=== PATIENT | female | born 1955 | race Caucasian/White ===

== ENCOUNTER → 2016-05-24 | Outpatient (REF) | payer BC ==
[2016-05-24 17:39] LABS: AMYLASE 56 U/L (25-115)
== END ==
LOC: M LAB REF 16:51
PROVIDERS: ATTEND Nurse Practitioner Family
DX: R10.11 Right upper quadrant pain (principal)

== ENCOUNTER → 2018-03-24 | Outpatient (REF) | payer BC ==
[2018-03-28 00:06] LABS: Lyme Disease IgG/IgM Antibodie <0.91 ISR (0.00-0.90); Lyme Disease IgM Ab Quantitati <0.80 index (0.00-0.79)
== END ==
LOC: M LAB REF 16:14
PROVIDERS: ATTEND Nurse Practitioner Family
DX: Z11.8 Encounter for screening for other infectious and parasitic diseases (principal); W57.XXXA Bitten or stung by nonvenomous insect and other nonvenomous arthropods, initial encounter; Y92.9 Unspecified place or not applicable; Y93.9 Activity, unspecified; Y99.9 Unspecified external cause status

== ENCOUNTER → 2020-08-18 | Outpatient (REF) | payer BC, MEDICARE | LOC: M LAB REF 12:17 | PROVIDERS: ATTEND Internal Medicine | DX: M79.10 Myalgia, unspecified site (principal) ==

== ENCOUNTER → 2020-11-21 | Outpatient (CLI) | payer MEDICARE ==
[~2020-11-21] MED LIST: E-Z-GAS II EFFERVESCENT PACKET (SODIUM BICARB./CITRIC ACID/SIMETHICONE) As Ordered ONE; E-Z-HD 98% w/w 340GM SUSP BTL As Ordered ONE; E-Z-PAQUE 96% w/w SUSP 176GM BTL As Ordered ONE
== END ==
LOC: M RAD 08:42
PROVIDERS: ATTEND Internal Medicine
DX: R13.10 Dysphagia, unspecified (principal)

== ENCOUNTER → 2021-02-13 | Outpatient (CLI) | payer MEDICARE ==
[~2021-02-13] MED LIST changes: +BIOT1CAP2 PO; +BUPR-69 PO; -E-Z-GAS II EFFERVESCENT PACKET (SODIUM BICARB./CITRIC ACID/SIMETHICONE) As Ordered ONE; -E-Z-HD 98% w/w 340GM SUSP BTL As Ordered ONE; -E-Z-PAQUE 96% w/w SUSP 176GM BTL As Ordered ONE; +FOLI800C PO; +TRAZ-189 PO; +VITA50TA47 PO
== END ==
LOC: M LABSMTC 11:32
PROVIDERS: ATTEND Anesthesiology
DX: Z01.812 Encounter for preprocedural laboratory examination (principal); Z20.822 Contact with and (suspected) exposure to COVID-19

== ENCOUNTER 2021-02-18 11:08 | Day surgery (SDC) | payer MEDICARE ==
[~2021-02-18] VITALS: Ht 152.4 cm; Wt 64.9 kg
[~2021-02-18 11:08] MED LIST changes: +NS 1,000 ML IV ONE
--- OUTSIDE RECORDS SUMMARY | 2021-02-18 11:17 | CCD ---
Continuity of Care Document (CCD) Created on: 12/12/2020 FigueroaWendy lam External Reference #: [id number] : [id number] Sex: Female Author Author Lab Schedule, Wendy Karimi Organization Unknown Address [address] [place] [phone] Phone Unavailable Care Team Providers Care Tipping Machine Operator Automatic Name Role Phone Marium Serrato MD AUTM [phone] Tee Shelton MD - Neurology AUTM Problems Active Problems Provider Date Anxiety state Marium Serrato M.D. Onset: 6 Attention deficit hyperactivity disorder, predominantl y inattentive type Marium Serrato M.D. Onset: 04/29/2015 Migraine Marium Serrato M.D. Onset: 6 Atrophic vaginitis Marium Serrato M.D. Onset: 6 Pure hypercholesterolemia Marium Serrato M.D. Onset: Osteochondropathy Elayne Killian FNP Onset: 04/29/2015 Social History Type Date Description Comments Sex Unknown ETOH Use Consumes liquor 2 times per week 3-6 DRINKS A WEEK ETOH Use Drinks 3 Alcoholic Beverages Per Week 06/02/16 Tobacco Use Start: Unknown End: Unknown Patient is a former smoker X 15 YRS 1 PACK A DAY Allergies, Adverse Reactions, Alerts Description No Known Drug Allergies Medications Active Medications SIG Qnty Indications Ordering Provide r Date Trazodone HCL 100mg Tablets take one-half tablet by mouth at bedtime prn 45tabs Marium Serrato M.D. 10/22/2020 B2 100mg Tablets qd Marium Serrato M.D. 08/18/2020 Venlafaxine HCL ER 37.5mg Caps ER 24HR Hold 1 by mouth every morning for 7days;then 2 by mouth every day 60caps Marium Serrato M.D. 08/18/2020 Acetaminophen Extra Strength 500mg Tablets 2 by mouth q 6hrs prn po Marium hicks M.D. 06/16/2020 Folic Acid 1mg Tablets 1 by mouth every day 90tabs Volodymyr Ayoub MD 06/16/2020 Vitamin B12 1000mcg Tablets ER 1 by mouth every day Marium Serrato M.D. 06/17/19 21 Multi Vitamin Tablets 1 by mouth every day Marium Serrato M.D. 06/17/19 21 Bupropion HCL 100mg Tablets take 1 tablet by mouth every morning 90tabs Marium Serrato M.D. 0 11/19/2019 Advil 200mg Capsules 3 q 4hrs prn po Elayne Killian,CLAUDY 10/24/2018 History Medications Trazodone HCL 50mg Tablets take 1-2 tablet by mouth at bedtime 60tabs Marium Serrato M.D. 08/02 - 10/22/2020 Thiamine HCL 100mg Tablets 1 by mouth every day 30tabs Marium Serrato M.D. 06/17/19 - 08/18/2020 Medications Administered in Office Medication SIG Qnty Indications Ordering Provider Date Covid-19 vaccine, Unspecified Inj ection Unknown 06/18/2020 Immunizations CPT Code Status Date Vaccine Lot # [id number] Given 04/19/2013 Fluvirin Virus Vaccine [id number] 01 [id number] Given 01/19/2012 Adacel- Tetanus Diphtheria P ertussis (Age64 & Under) [id number] Refused 01/25/2017 Influenza Vaccin e Quadrivalent Preser/Antibiotic Free Im Use Vital Signs Date Vital Result Comment 11/06/2020 2:26pm BP Systolic 118 mmHg RT Arm BP Diastolic 76 mmHg RT Arm Heart Rate 76 /min Height 59.50 inches 4'11.50" Weight 151.00 lb BMI (Body Mass Index) 30.0 kg/m2 08/18/2020 8:34am BP Systolic 112 mmHg RT Arm BP Diastolic 74 mmHg RT Arm Heart Rate 64 /min Height 59.50 inches 4'11.50" Weight 159.00 lb BMI (Body Mass Index) 31.6 kg/m2 Results Test Acquired Date Facility Test Result H/L Range Note Laboratory test finding 08/18/2020 [facility] [address] [place] [address] [phone] C Reactive Protein Quantitativ < 0.30 mg/dL Normal 0.00-0.30 Complete Blood Count 08/18/2020 [place] [facility] Health Navigator: [place] [address] [phone] WBC 3.9 x10*3/UL Low 4.1 - 10.9 RBC 4.70 x10*6/UL 4.20 - 6.30 Hemoglobin 13.9 g/dL 12.0 - 18.0 Hematocrit 40.7 % 37.0 - 51.0 MCV 86.7 fL 80.0 - 97.0 MCH 29.7 pg 26.0 - 32.0 MCHC 34.2 g/dL 31.0 - 38.0 RDW 12.1 % 11.6 - 13.7 PLT 191 x10*3/UL 140 - 440 MPV 8.7 FL 7.8 - 11.0 Lymph % 35.6 % 10.0 - 58.5 Mid % 8.3 % 1.7 - 9.3 Neut % 56.1 % 37.0 - 92.0 Lymph # 1.3 x10*3/UL 0.6 - 4.1 Mid # 0.4 x10*3/UL 0.1 - 0.6 Neut # 2.2 x10*3/UL 2.0 - 7.8 Laboratory test finding 08/18/2020 [place] [facility] alex, pc Health Navigator: [place] [address] [phone] Sed Rate 7 mm/hr 0 - 15 Magnesium 2.2 mg/dL 1.8 - 2.4 Comprehensive Chem Profile 08/18/2020 [place] raul Landry Health Navigator: [place] [address] [phone] Glucose 89 mg/dL 74 - 99 1 BUN 14 mg/dL 7 - 18 Creatinine 0.8 mg/dL 0.6 - 1.3 Sodium 140 mEq/L 136 - 145 Potassium 4.6 mEq/L 3.5 - 5.1 Chloride 105 mEq/L 98 - 107 Carbon Dioxide 28 mEq/L 21 - 32 Calcium 9.2 mg/dL 8.5 - 10.1 Alk. Phosphatase 87 mg/dL 46 - 116 Total Bilirubin 0.4 mg/dL 0.2 - 1.0 Ast (Sgot) 19 U/L 15 - 37 Alt (SGPT) 29 U/L 12 - 78 Albumin 4.3 g/dL 3.4 - 5.0 Total Protein 7.1 g/dL 6.4 - 8.2 A/G Ratio 1.54 CALC 1.00 - 1.90 GFR >= 60 mL/min >60 GFR >= 60 mL/min >60 2 Laboratory test finding 08/18/2020 [place] [facility] raul johnson Health Navigator: [place] [address] [phone] Thyroid Stimulating Hormone 2.05 uIU/mL 0.3 6 - 3.74 1 100-125 mg/dL PRE-DIABET ES/FASTING >126 mg/dL DIABETES/FASTING 2 CHRONIC KIDNEY DISEASE STAGI NG PER NKF STAGE I & II GFR >= 60 NORMAL TO MILDLY DECREASED STAGE III GFR 30-59 MODERATELY DECREASED STAGE IV GFR 15-29 SEVERELY DECREASED STAGE V GFR <15 VERY LITTLE GFR LEFT ESRD GFR <15 ON GAMING CAGE CASHIER Procedures Date Code Description Status 11/06/2020 74670 Office/Outpatient Established Lo w MDM 20-29 Min Completed 08/18/2020 58018 Office/Outpatient Established Mo d MDM 30-39 Min Completed 08/18/2020 51211 Brief Emotional/Beha v Assessment W/ Scoring Doc Per Standard Inst Completed 06/20/2020 97011 Melgar Cre SRV W/I 7 Days Of DC, C omm W/I 2 Dys Med Rec Completed 03/21/2017 [id number] Mammogram Completed 01/11/2017 [id number] Diabetic Retinal Eye Exam Comple [facility] 07/12/2014 [id number] Bone Mineral Density Test Comple [facility] 07/12/2014 [id number] Mammogram Completed 04/25/2006 [id number] Colonoscopy Completed Medical Devices Description No Information Available Encounters Type Date Location Provider Dx Diagnosis Office Visit 11/06/2020 2:30p [place] [facility] R13.10 Dysphagia, unspecified F41.9 Anxiety disorder, unspecifie d G47.00 Insomnia, unspecified M79.10 Myalgia, unspecified site F10.11 Alcohol abuse, in remission Office Visit 08/18/2020 8:30a [facility], PKaren Serrato M.D. F41.9 Anxiety disorder, unspecifie d G47.00 Insomnia, unspecified F34.1 Dysthymic disorder M79.10 Myalgia, unspecified site F10.11 Alcohol abuse, in remission Office Visit 06/20/2020 2:40p [facility], P.CLane lovell, PULLMAN CONDUCTOR F10.99 Alcohol use, unsp with unspecified alcoh ol-induced disorder F41.9 Anxiety disorder, unspecifie d K59.00 Constipation, unspecified Assessments Date Code Description Provider 11/06/2020 R13.10 Dysphagia, unspecified Marium Serrato M.D. 11/06/2020 F41.9 Anxiety disorder, unspecified Lashae Serrato M.D. 11/06/2020 G47.00 Insomnia, unspecified Marium ocasio M.D. 11/06/2020 M79.10 Myalgia, unspecified site Marium Serrato M.D. 11/06/2020 F10.11 Alcohol abuse, in remission Alexandra Serrato M.D. 08/18/2020 F41.9 Anxiety disorder, unspecified Lashae Serrato M.D. 08/18/2020 G47.00 Insomnia, unspecified Marium ocasio M.D. 08/18/2020 F34.1 Dysthymic disorder Marium nunez M.D. 08/18/2020 M79.10 Myalgia, unspecified site Marium Serrato M.D. 08/18/2020 F10.11 Alcohol abuse, in remission Alexandra Serrato M.D. 06/20/2020 F10.99 Alcohol use, unspecified with un specified alcohol-induced di Lina Duque, PULLMAN CONDUCTOR 06/20/2020 F41.9 Anxiety disorder, unspecified Jose Duque, [facility] 06/20/2020 K59.00 Constipation, unspecified Josedipti long Neto, [facility] Plan of Treatment Future Appointment(s):* 12/15/2020 1:40 pm - [facility] [place] [facility] * 12/15/2020 2:00 pm - Marium Serrato M.D. at [facility] 11/06/2020 - Marium Serrato M.D.* R13.10 Dysphagia, unspecified * F41.9 Anxiety disorder, unspecified * G47.00 Insomnia, unspecified * M79.10 Myalgia, unspecified site * F10.11 Alcohol abuse, in remission * All * Comments:* 6. Dysthymia. Continue the Bupropion, Trazodone, prn Venlafaxine7. Health Maintenance. Due for colon cancer screening. I will refer to Dr. Larose. Functional Status Description No Information Available Mental Status Description No Information Available Referrals Refer to Dr Reason for Referral Status Appt Date Noel Larose MD REFERRAL FOR COLON CA SCREENING AND D YSPHAGIA Patient Notified 12/25/[address] [place] [id number] [phone]
--- OUTSIDE RECORDS SUMMARY | 2021-02-18 11:17 | CCD | Continuity of Care Document ---
Author Author Lab Schedule, Wendy Karimi Organization Unknown Address [address] [place] [phone] Phone Unavailable Care Team Providers Care Link Cutter Name Role Phone Marium Serrato MD AUTM [phone] Tee Shelton MD - Neurology AUTM Problems [...] SIG Qnty Indications Ordering Provide r Date Zyrtec Allergy 10mg Tablets 1 by mouth every night at bedtime prn Kisha Adams 12/15/2020 Saline Nasal [place] 0.65% Solution 2-4x/d as directed 1units Marium Serrato M.D. 12/16/19 21 Trazodone HCL 100mg Tablets take one-half tablet [...] Capsules 3 q 4hrs prn po Elayne Killian FNP 10/24/2018 History Medications Trazodone HCL 50mg Tablets take 1-2 tablet by mouth at bedtime 60tabs Marium Serrato M.D. 08/02 - 10/22/2020 Medications Administered in Office Medication SIG Qnty Indications Ordering Provider Date Covid-19 vaccine, Unspecified Inj ection Unknown 06/18/2020 Immunizations CPT Code Status Date Vaccine Lot # [id number] Given 04/19/2013 Fluvirin Virus Vaccine 29163 01 30008 Given 01/19/2012 Adacel- Tetanus Diphtheria P ertussis [id number] Refused 01/25/2017 Influenza Vaccin e Quadrivalent Preser/Antibiotic Free Im Use Vital Signs Date Vital Result Comment 12/15/2020 1:58pm BP Systolic 108 mmHg RT Arm BP Diastolic 60 mmHg RT Arm Heart Rate 66 /min Height 59.50 inches 4'11.50" Weight 149.00 lb BMI (Body Mass Index) 29.6 kg/m2 11/06/2020 2:26pm BP Systolic 118 mmHg RT Arm BP Diastolic 76 mmHg RT Arm Heart Rate 76 /min Height 59.50 inches 4'11.50" Weight 151.00 lb BMI (Body Mass Index) 30.0 kg/m2 Results Test Acquired Date Facility Test Result H/L Range Note Laboratory test finding 12/12/2020 [facility] Manager Functional: [place] [address] [phone] Glucose 90 mg/dL 74 - 99 1 Lipid Profile 12/12/2020 [facility] Manager Functional: Dr Volodymyr Ayoub [place], [place] [id number] [phone] Cholesterol 240 mg/dL High 131 - 200 Triglycerides 92 mg/dL 30 - 150 HDL Cholesterol 57 mg/dL 35 - 60 LDL (Calculated) 165 CALC High 50 - 159 Laboratory test finding 08/18/2020 [facility] [address] [place] [address] [phone] C Reactive Protein Quantitativ < 0.30 mg/dL Normal 0.00-0.30 Complete Blood Count 08/18/[address] [facility] Manager Functional: [place] [address] [phone] WBC 3.9 x10*3/UL Low 4.1 - 10.9 [...] 2.0 - 7.8 Laboratory test finding 08/18/2020 [facility] [facility] raul johnson Manager Functional: Dr Volodymyr Ayoub [place], [place] [id number] [phone] Sed Rate 7 mm/hr 0 - 15 Magnesium 2.2 mg/dL 1.8 - 2.4 Comprehensive Chem Profile 08/18/2020 [facility] Manager Functional: [place] [address] [phone] Glucose 89 mg/dL 74 - 99 2 BUN 14 mg/dL 7 - 18 Creatinine [...] mL/min >60 GFR >= 60 mL/min >60 3 Laboratory test finding 08/18/2020 [facility] [facility] raul johnson Manager Functional: Dr Volodymyr Ayoub [place], [place] [address] [phone] Thyroid Stimulating Hormone 2.05 uIU/mL 0.3 6 - 3.74 1 100-125 mg/dL PRE-DIABET ES/FASTING >126 mg/dL DIABETES/FASTING 2 100-125 mg/dL PRE-DIABET ES/FASTING >126 mg/dL DIABETES/FASTING 3 CHRONIC KIDNEY DISEASE STAGI NG PER NKF STAGE I & II GFR >= 60 NORMAL TO MILDLY DECREASED STAGE III GFR 30-59 MODERATELY DECREASED STAGE IV GFR 15-29 SEVERELY DECREASED STAGE V GFR <15 VERY LITTLE GFR LEFT ESRD GFR <15 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 Procedures Date Code Description Status 12/15/2020 17919 Est Prevent Med (65Yrs&Ovr) Comp leted 12/15/2020 56975 Brief Emotional/Beha v Assessment W/ Scoring Doc Per Standard Inst Completed 12/15/2020 23502 EKG/Interpretation & Report Comp leted 11/06/2020 51102 Office/Outpatient Established Lo w MDM 20-29 Min Completed 08/18/2020 19801 Office/Outpatient Established Mo d MDM 30-39 Min Completed 08/18/2020 45175 Brief Emotional/Beha v Assessment W/ Scoring Doc Per Standard Inst Completed 06/20/2020 41210 Melgar Cre SRV W/I 7 Days Of DC, C omm W/I 2 Dys Med Rec Completed 03/21/2017 [id number] Mammogram Completed 01/11/2017 [id number] Diabetic Retinal Eye Exam Comple [facility] 07/12/2014 [id number] Bone Mineral Density Test Comple [facility] 07/12/2014 [id number] Mammogram Completed 04/25/2006 [id number] Colonoscopy Completed Medical Devices Description No Information Available Encounters Type Date Location Provider Dx Diagnosis Office Visit 12/15/2020 2:00p [facility] Z00.00 Encntr for general adult med ical exam w/o abnormal findings R13.10 Dysphagia, unspecified F10.11 Alcohol abuse, in remission F41.9 Anxiety disorder, unspecifie d E78.00 Pure hypercholesterolemia, u nspecified F34.1 Dysthymic disorder Z85.828 Personal history of other ma lignant neoplasm of skin G43.909 Migraine, unsp, not intracta ble, without status migrainosus Office Visit 11/06/2020 2:30p [facility] M.D. R13.10 Dysphagia, unspecified F41.9 Anxiety disorder, unspecifie d G47.00 Insomnia, unspecified M79.10 Myalgia, unspecified site F10.11 Alcohol abuse, in remission Office Visit 08/18/2020 8:30a [facility] M.[facility] F41.9 Anxiety disorder, unspecifie d G47.00 Insomnia, unspecified F34.1 Dysthymic disorder M79.10 Myalgia, unspecified site F10.11 Alcohol abuse, in remission Office Visit 06/20/2020 2:40p [facility], PLaneCLane lovell, SEAFOOD CLERK F10.99 Alcohol use, unsp with unspecified alcoh ol-induced disorder F41.9 Anxiety disorder, unspecifie d K59.00 Constipation, unspecified Assessments Date Code Description Provider 12/15/2020 Z00.00 Encounter for genera l adult medical examination without abnormal findings Marium Serrato M.D. 12/15/2020 R13.10 Dysphagia, unspecified Marium Serrato M.D. 12/15/2020 F10.11 Alcohol abuse, in remission Alexandra Serrato M.D. 12/15/2020 F41.9 Anxiety disorder, unspecified Lashae Serrato M.D. 12/15/2020 E78.00 Pure hypercholesterolemia, unspe cified Marium Serrato M.D. 12/15/2020 F34.1 Dysthymic disorder Marium nunez M.D. 12/15/2020 Z85.828 Personal history of other malign ant neoplasm of skin Marium Serrato M.D. 12/15/2020 G43.909 Migraine, unspecifie d, not intractable, without status migrainosus Marium Serrato M.D. 12/12/2020 R73.09 Other abnormal glucose Marium Serrato M.D. 12/12/2020 R73.09 Other abnormal glucose Lab Sched ule 12/12/2020 E78.00 Pure hypercholesterolemia, unspe cified Marium Serrato M.D. 12/12/2020 E78.00 Pure hypercholesterolemia, unspe cified Lab Schedule 11/06/2020 R13.10 Dysphagia, unspecified Marium Serrato M.D. 11/06/2020 F41.9 Anxiety disorder, unspecified Lashae Serrato M.D. 11/06/2020 G47.00 Insomnia, unspecified Marium ocasio M.D. 11/06/2020 M79.10 Myalgia, unspecified site Marium Serrato M.D. 11/06/2020 F10.11 Alcohol abuse, in remission Alexandra Serrato M.D. 08/18/2020 F41.9 Anxiety disorder, unspecified Ju elio Serrato M.D. 08/18/2020 G47.00 Insomnia, unspecified Marium ocasio M.D. 08/18/2020 F34.1 Dysthymic disorder Marium nunez M.D. 08/18/2020 M79.10 Myalgia, unspecified site Marium Serrato M.D. 08/18/2020 F10.11 Alcohol abuse, in remission Alexandra Serrato M.D. 06/20/2020 F10.99 Alcohol use, unspecified with un specified alcohol-induced di Lina Duque, [facility] 06/20/2020 F41.9 Anxiety disorder, unspecified Ji hermila Duque, SEAFOOD CLERK 06/20/2020 K59.00 Constipation, unspecified Jideania n Neto, [facility] Plan of Treatment Future Appointment(s):* 07/15/2021 7:40 am - Lab Schedule at [facility] * 07/15/2021 2:45 pm - Marium Serrato M.D. at [facility] 12/15/2020 - Marium Serrato M.D.* Z00.00 Encounter for general adult medical examination without abnormal findings * R13.10 Dysphagia, unspecified * F10.11 Alcohol abuse, in remission * F41.9 Anxiety disorder, unspecified * E78.00 Pure hypercholesterolemia, unspecified * F34.1 Dysthymic disorder * Z85.828 Personal history of other malignant neoplasm of skin * G43.909 Migraine, unspecified, not intractable, without status migrainosus * All * New Medication:* Zyrtec Allergy 10 mg - 1 by mouth every night at bedtime prn * Saline Nasal [place] 0.65 % - 2-4x/d as directed * Comments:* 8. Health maintenance. Patient was too late for Medicare Wellness today. Her Tetanus is up to date. Flu shot is recommended as well as shingles vaccine, COVID booster and pneumonia shots. She is resistant to vaccines. She has refused recent Paps. She agrees to a mammogram and bone density, orders are given. She's been referred to GI for colon cancer screening update. Functional Status Description No Information Available Mental Status Description No Information Available Referrals Refer to Reason for Referral Status Appt Date Noel Larose MD REFERRAL FOR COLON CA SCREENING AND D YSPHAGIA Patient Notified 12/25/2020 [address] [id number] [phone]
--- OUTSIDE RECORDS SUMMARY | 2021-02-18 11:17 | CCD | Continuity of Care Document ---
Author Author Wendy Serrato M.D. Organization Unknown Address [address] [place] [address] [address] [place] [address] Phone [phone] Care Team Providers Care Cigarette Machine Operator Name Role Phone Marium Serrato MD AUTM [phone] Tee Shelton MD - Neurology AUTM Problems Active Problems Provider Date Anxiety state Marium Serrato M.D. Onset: 6 Attention deficit hyperactivity disorder, predominantl y inattentive type Marium Serrato M.D. Onset: 04/29/2015 Migraine Marium Serrato M.D. Onset: 6 Atrophic vaginitis Marium Serrato M.D. Onset: 6 Pure hypercholesterolemia Marium Serrato M.D. Onset: Osteochondropathy Elayne Killian,SUBSTATION OPERATOR CONVERSION Onset: 04/29/2015 Social History Type Date Description [...] bedtime prn Kisha Adams 12/15/2020 Saline Nasal [place] 0.65% Solution 2-4x/d as directed 1units Marium [...] 2 by mouth q 6hrs prn po aMrium hicks M.D. 06/16/2020 Folic Acid 1mg Tablets [...] # [id number] Given 04/19/2013 Fluvirin Virus Vaccine 86365 01 63050 Given 01/19/2012 Adacel- Tetanus Diphtheria P ertussis [id number] Refused 01/25/2017 Influenza Vaccin e Quadrivalent Preser/Antibiotic [...] H/L Range Note Laboratory test finding 12/12/2020 [facility] Raisin Separator Operator: Dr Volodymyr Ayoub [place], [place] [id number] [phone] Glucose 90 mg/dL 74 - 99 1 Lipid Profile 12/12/2020 [facility] Raisin Separator Operator: [place] [address] [phone] Cholesterol 240 mg/dL High 131 - 200 Triglycerides 92 mg/dL 30 - 150 HDL Cholesterol 57 mg/dL 35 - 60 LDL (Calculated) 165 CALC High 50 - 159 Laboratory test finding 08/18/2020 [facility] [address] [place] [address] [phone] C Reactive Protein Quantitativ < 0.30 mg/dL Normal 0.00-0.30 Complete Blood Count 08/18/2020 [facility] Raisin Separator Operator: [place] [address] [phone] WBC 3.9 x10*3/UL Low 4.1 - 10.9 [...] 2.0 - 7.8 Laboratory test finding 08/18/2020 [facility] Raisin Separator Operator: Dr Volodymyr [place]youb [place] [address] [phone] Sed Rate 7 mm/hr 0 - 15 Magnesium 2.2 mg/dL 1.8 - 2.4 Comprehensive Chem Profile 08/18/2020 [facility] Raisin Separator Operator: Dr Volodymyr Ayoub [place], [place] [address] [phone] Glucose 89 mg/dL 74 - 99 2 [...] mL/min >60 3 Laboratory test finding 08/18/2020 [facility] Raisin Separator Operator: Dr Volodymyr Ayoub [place] [address] [phone] Thyroid Stimulating Hormone 2.05 uIU/mL 0.3 6 [...] LITTLE GFR LEFT ESRD GFR <15 ON EXPORT 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 Procedures Date Code Description Status 12/15/2020 63148 Est Prevent Med (65Yrs&Ovr) Comp leted 12/15/2020 68418 Brief Emotional/Beha v Assessment W/ Scoring Doc Per Standard [facility] Completed 12/15/2020 28785 EKG/Interpretation & Report Comp leted 11/06/2020 43583 Office/Outpatient Established Lo w MDM 20-29 Min Completed 08/18/2020 29916 Office/Outpatient Established Mo d MDM 30-39 Min Completed 08/18/2020 61964 Brief Emotional/Beha v Assessment W/ Scoring Doc Per Standard Inst Completed 06/20/2020 58097 Melgar Cre SRV W/I 7 Days Of DC, C omm W/I 2 Dys Med Rec Completed 03/21/2017 [id number] Mammogram Completed 01/11/2017 [id number] Diabetic Retinal Eye Exam Comple [facility] 07/12/2014 [id number] Bone Mineral Density Test Comple [facility] 07/12/2014 [id number] Mammogram Completed 04/25/2006 [id number] Colonoscopy Completed Medical Devices Description No Information Available Encounters Type Date Location Provider Dx Diagnosis Office Visit 12/15/2020 2:00p [facility] M.[facility]. Z00.00 Encntr for general adult med ical exam w/o abnormal findings R13.10 Dysphagia, unspecified F10.11 Alcohol abuse, in remission F41.9 Anxiety disorder, unspecifie d E78.00 Pure hypercholesterolemia, u nspecified F34.1 Dysthymic disorder Z85.828 Personal history of other ma lignant neoplasm of skin G43.909 Migraine, unsp, not intracta ble, without status migrainosus Office Visit 11/06/2020 2:30p [facility] M.D. R13.10 Dysphagia, unspecified F41.9 Anxiety disorder, unspecifie d G47.00 Insomnia, unspecified M79.10 Myalgia, unspecified site F10.11 Alcohol abuse, in remission Office Visit 08/18/2020 8:30a [facility] M.D. F41.9 Anxiety disorder, unspecifie d G47.00 Insomnia, unspecified F34.1 Dysthymic disorder M79.10 Myalgia, unspecified site F10.11 Alcohol abuse, in remission Office Visit 06/20/2020 2:40p [facility] P.CLane lovell, SUBSTATION OPERATOR CONVERSION F10.99 Alcohol use, unsp with unspecified alcoh [...] intractable, without status migrainosus Marium Serrato M.D. 11/06/2020 R13.10 Dysphagia, unspecified Marium Serrato M.D. [...] unspecified with un specified alcohol-induced di Lina Neto, [facility] 06/20/2020 F41.9 Anxiety disorder, unspecified Ji llian Neto, [facility] 06/20/2020 K59.00 Constipation, unspecified Jillia n Neto, SUBSTATION OPERATOR CONVERSION Plan of Treatment Future Appointment(s):* 07/15/2021 7:40 am - Lab Schedule at [facility] * 07/15/2021 2:45 pm - [facility] 12/15/2020 - Marium Serrato M.D.* Z00.00 [...] night at bedtime prn * Saline Nasal [place] 0.65 % - 2-4x/d as directed * [...] REFERRAL FOR COLON CA SCREENING AND D BIBI Patient Notified 12/25/[address] [place], [place] [id number] [phone]
--- OUTSIDE RECORDS SUMMARY | 2021-02-18 11:17 | CCD | Continuity of Care Document ---
Author Author Wendy Serrato M.D. Organization Unknown Address [address] [place] [address] [address] [place] [address] Phone [phone] Care Team Providers Care Senior Data Quality Analyst Name Role Phone Marium Serrato MD AUTM [phone] Tee Shelton MD - Neurology AUTM Problems Active Problems Provider Date Anxiety state Marium Serrato M.D. Onset: 6 Attention deficit hyperactivity disorder, predominantl y inattentive type Marium Serrato M.D. Onset: 04/29/2015 Migraine Marium Serrato M.D. Onset: 6 Atrophic vaginitis Marium Serrato M.D. Onset: 6 Pure hypercholesterolemia Marium Serrato M.D. Onset: Osteochondropathy Elayne Killian,OYSTER PLANTER Onset: 04/29/2015 Social History Type Date Description Comments Sex Unknown ETOH Use Consumes liquor 2 times per week 3-6 DRINKS A WEEK ETOH Use Drinks 3 Alcoholic Beverages Per Week 06/02/16 Tobacco Use Start: Unknown End: Unknown Patient is a former smoker X 15 YRS 1 PACK A DAY Allergies and adverse reactions Description No Known Drug Allergies Medications Active Medications SIG Qnty Indications Ordering Provide r Date Zyrtec Allergy 10mg Tablets 1 by mouth every night at bedtime prn Kisha Adams 12/15/2020 Saline Nasal Monroe 0.65% Solution 2-4x/d as directed 1units Marium Serrato M.D. 09/13/20 21 Trazodone HCL 100mg Tablets take one-half [...] # Q2037 Given 04/19/2013 Fluvirin Virus Vaccine 06215 01 91371 Given 01/19/2012 Adacel- Tetanus Diphtheria P ertussis [id number] Refused 01/25/2017 Influenza Vaccin e Quadrivalent Preser/Antibiotic [...] Date Facility Test Result H/L Range Note Coronavirus 2019 Nasopharygeal 02/13/2021 [facility] [address] [place] [address] [phone] Coronavirus 2019 Nasopharygeal ASSAY INFORMATIO <SEE N OTE> 1 Laboratory test finding 12/12/2020 [facility] Pin Sorter And Bagger: [place] [address] [phone] Glucose 90 mg/dL 74 - 99 2 Lipid Profile 12/12/2020 [facility] Pin Sorter And Bagger: [place] [address] [phone] Cholesterol 240 mg/dL High 131 - 200 Triglycerides 92 mg/dL 30 - 150 HDL Cholesterol 57 mg/dL 35 - 60 LDL (Calculated) 165 CALC High 50 - 159 Laboratory test finding 08/18/2020 [facility] [address] [place] [id number] [phone] C Reactive Protein Quantitativ < 0.30 mg/dL Normal 0.00-0.30 Complete Blood Count 08/18/2020 [facility] Pin Sorter And Bagger: [place] [address] [phone] WBC 3.9 x10*3/UL Low 4.1 - 10.9 [...] 2.0 - 7.8 Laboratory test finding 08/18/2020 [facility] raul johnson Pin Sorter And Bagger: [place] [address] [phone] Sed Rate 7 mm/hr 0 - 15 Magnesium 2.2 mg/dL 1.8 - 2.4 Comprehensive Chem Profile 08/18/2020 [facility] S[employer] And Bagger: [place] [address] [phone] Glucose 89 mg/dL 74 - 99 3 BUN 14 mg/dL 7 - 18 Creatinine [...] mL/min >60 GFR >= 60 mL/min >60 4 Laboratory test finding 08/18/2020 [facility] rual johnson Pin Sorter And Bagger: [place] [address] [phone] Thyroid Stimulating Hormone 2.05 uIU/mL 0.3 6 - 3.74 1 ASSAY INFORMATION: Real Time RT-PCR NOTE: The COVID-19 assay has been cleared by the U.S. Food and Drug Administration under the Emergency Use Authorization (EUA). [facility] are designated as high complexity laboratories by the Clinical Laboratory Improvement Amendments of 1988(CLIA) and are qualified to perform this test. 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 FLOW MANAGER Procedures Date Code Description Status 12/15/2020 47905 Est Prevent Med (65Yrs&Ovr) Comp leted 12/15/2020 18276 Brief Emotional/Beha v Assessment W/ Scoring Doc Per Standard Inst Completed 12/15/2020 69373 EKG/Interpretation & Report Comp leted 11/06/2020 92413 Office/Outpatient Established Lo w MDM 20-29 Min Completed 08/18/2020 44587 Office/Outpatient Established Mo d MDM 30-39 Min Completed 08/18/2020 93861 Brief Emotional/Beha v Assessment W/ Scoring Doc Per Standard Inst Completed 03/21/2017 [id number] Mammogram Completed 01/11/2017 [id number] Diabetic Retinal [facility] Exam [facility] 07/12/2014 [id number] Bone Mineral Density Test [facility] 07/12/2014 [id number] Mammogram Completed 04/25/2006 [id number] Colonoscopy Completed Medical Devices Description No Information Available Encounters Type Date Location Provider Dx Diagnosis Office Visit 12/15/2020 2:00p [facility] Serrato M.D. Z00.00 Encntr for general adult med ical exam w/o abnormal findings R13.10 Dysphagia, unspecified F10.11 Alcohol abuse, in remission F41.9 Anxiety disorder, unspecifie d E78.00 Pure hypercholesterolemia, u nspecified F34.1 Dysthymic disorder Z85.828 Personal history of other ma lignant neoplasm of skin G43.909 Migraine, unsp, not intracta ble, without status migrainosus Office Visit 11/06/2020 2:30p [facility] john[facility] M.D. R13.10 Dysphagia, unspecified F41.9 Anxiety disorder, unspecifie d G47.00 Insomnia, unspecified M79.10 Myalgia, unspecified site F10.11 Alcohol abuse, in remission Office Visit 08/18/2020 8:30a [facility] Geronimo Serrato M.D. F41.9 Anxiety disorder, unspecifie d G47.00 Insomnia, unspecified F34.1 Dysthymic disorder M79.10 Myalgia, unspecified site F10.11 Alcohol abuse, in remission Assessments Date Code Description Provider 12/15/2020 Z00.00 [...] Serrato M.D. 08/18/2020 F41.9 Anxiety disorder, unspecified Lsahae Serrato M.D. 08/18/2020 G47.00 Insomnia, unspecified Marium ocasio M.D. 08/18/2020 F34.1 Dysthymic disorder Marium nunez M.D. 08/18/2020 M79.10 Myalgia, unspecified site Marium Serrato M.D. 08/18/2020 F10.11 Alcohol abuse, in remission Alexandra Serrato M.D. Plan of Treatment Future Appointment(s):* 07/15/2021 7:40 am - [facility] * 07/15/2021 2:45 pm - [facility] 12/15/2020 - Marium Serrato M.D.* [...] night at bedtime prn * Saline Nasal Monroe 0.65 % - 2-4x/d as directed * [...] REFERRAL FOR COLON CA SCREENING AND D VANDANAPHAVILLA Patient Notified 12/25/[address] [place], [place] [address] [phone]
--- OUTSIDE RECORDS SUMMARY | 2021-02-18 11:17 | CCD | Continuity of Care Document ---
Author Author Lab Schedule, Wendy Karimi Organization Unknown Address [address] [place] [address] Phone Unavailable Care Team Providers Care Sheet Mill Supervisor Name Role Phone Marium Serrato MD AUTM [phone] Tee Shelton MD - Neurology AUTM Problems [...] # Q2037 Given 04/19/2013 Fluvirin Virus Vaccine 73051 01 66188 Given 01/19/2012 Adacel- Tetanus Diphtheria P ertussis (Age64 & Under) [id number] Refused 01/25/2017 Influenza Vaccin e Quadrivalent Preser/Antibiotic [...] H/L Range Note Laboratory test finding 12/12/2020 [place] [facility] raul johnson Regional Planner: Dr Volodymyr [place] [address] [phone] Glucose 90 mg/dL 74 - 99 1 Lipid Profile 12/12/2020 [place] raul Beckwith Regional Planner: Dr Volodymyr Ayou[place] [address] [phone] Cholesterol 240 mg/dL High 131 - 200 Triglycerides 92 mg/dL 30 - 150 HDL Cholesterol 57 mg/dL 35 - 60 LDL (Calculated) 165 CALC High 50 - 159 Laboratory test finding 08/18/2020 [facility] [address] [place], [place] [id number] [phone] C Reactive Protein Quantitativ < 0.30 mg/dL Normal 0.00-0.30 Complete Blood Count 08/18/2020 [place] raul Lopez Regional Planner: Dr Volodymyr Ayoub [place] [address] [phone] WBC 3.9 x10*3/UL Low 4.1 - 10.9 [...] 2.0 - 7.8 Laboratory test finding 08/18/2020 [facility] [place] Regional Planner: Dr Volodymyr [place]you[place] [address] [phone] Sed Rate 7 mm/hr 0 - 15 Magnesium 2.2 mg/dL 1.8 - 2.4 Comprehensive Chem Profile 08/18/2020 raul Gonzalez Regional Planner: Dr Volodymyr Ayou[place] [address] [phone] Glucose 89 mg/dL 74 - 99 2 [...] mL/min >60 3 Laboratory test finding 08/18/2020 [facility] [place] Regional Planner: Dr Volodymyr Ayoub [place] [address] [phone] Thyroid Stimulating Hormone 2.05 uIU/mL 0.3 6 [...] LITTLE GFR LEFT ESRD GFR <15 ON DIGITAL COMPUTER SYSTEMS ANALYST Procedures Date Code Description Status 11/06/2020 78506 Office/Outpatient Established Lo w MDM 20-29 Min Completed 08/18/2020 56659 Office/Outpatient Established Mo d MDM 30-39 Min Completed 08/18/2020 31216 Brief Emotional/Beha v Assessment W/ Scoring Doc Per Standard Inst Completed 06/20/2020 00161 Melgar Cre SRV W/I 7 Days Of DC, C omm W/I 2 Dys Med Rec Completed 03/21/2017 [id number] Mammogram Completed 01/11/2017 [id number] Diabetic Retinal Eye Exam [facility] 07/12/2014 [id number] Bone Mineral Density Test [facility] 07/12/2014 [id number] Mammogram Completed 04/25/2006 61856653 Colonoscopy Completed Medical Devices Description No Information Available Encounters Type Date Location Provider Dx Diagnosis Office Visit 11/06/2020 2:30p [facility] R13.10 Dysphagia, unspecified F41.9 Anxiety disorder, unspecifie d G47.00 Insomnia, unspecified M79.10 Myalgia, unspecified site F10.11 Alcohol abuse, in remission Office Visit 08/18/2020 8:30a [place] [facility] M.D. F41.9 Anxiety disorder, unspecifie d G47.00 Insomnia, unspecified F34.1 Dysthymic disorder M79.10 Myalgia, unspecified site F10.11 Alcohol abuse, in remission Office Visit 06/20/2020 2:40p [facility] lovell, [employer]ER[employer] MERCHANDISING MANAGER F10.99 Alcohol use, unsp with unspecified alcoh [...] M.D. 08/18/2020 F41.9 Anxiety disorder, unspecified Lashae Serraot M.D. 08/18/2020 G47.00 Insomnia, unspecified Marium ocasio M.D. 08/18/2020 F34.1 Dysthymic disorder Marium nunez M.D. 08/18/2020 M79.10 Myalgia, unspecified site Marium Serrato M.D. 08/18/2020 F10.11 Alcohol abuse, in remission Alexandra Serrato M.D. 06/20/2020 F10.99 Alcohol use, unspecified with un specified alcohol-induced di Lina Duque, [facility] 06/20/2020 F41.9 Anxiety disorder, unspecified Ji llian Neto, [facility] 06/20/2020 K59.00 Constipation, unspecified Jillia n Neto, [employer]ER[employer] MERCHANDISING MANAGER Plan of Treatment Future Appointment(s):* 12/15/2020 1:40 pm - [facility] [place] [facility] * 12/15/2020 2:00 pm - Marium [facility] [facility] 11/06/2020 - Marium Serrato M.D.* R13.10 Dysphagia, unspecified * F41.9 Anxiety disorder, unspecified * G47.00 Insomnia, unspecified * M79.10 Myalgia, unspecified site * F10.11 Alcohol abuse, in remission * All * Comments:* 6. Dysthymia. Continue the Bupropion, Trazodone, prn Venlafaxine7. Health Maintenance. Due for colon cancer screening. I will refer to Dr. Laroes. Functional Status Description No Information Available Mental Status Description No Information Available Referrals Refer to Reason for Referral Status Appt Date Noel Larose MD REFERRAL FOR COLON CA SCREENING AND D YSPHAGIA Patient Notified 12/25/2020 [address] [facility] [address] [phone]
--- OUTSIDE RECORDS SUMMARY | 2021-02-18 11:17 | CCD | Continuity of Care Document ---
Author Author Wendy LAROSE M.D. Organization Unknown Address [address] [place] [address] Phone [phone] Care Team Providers Care Community Liaison Name Role Phone Marium Serrato M.D. AUTM [phone] Problems Active Problems Provider Date Screening for malignant neoplasm of colon Noel long M.D. Onset: 12/25/2020 Social History Type Date Description Comments Sex Unknown ETOH Use Denies alcohol use Tobacco Use Start: Unknown End: Unknown Patient is a former smoker QUIT 1985 Allergies and adverse reactions Description No Known Drug Allergies Medications Active Medications SIG Qnty Indications Ordering Provide r Date Sutab [id number] Tablets as directed 1box oNel Larose M.D. 12/25/2020 Trazodone HCL 100mg Tablets Take One Half Tablet By Mouth AT Bedtime Unknown 0000 /0000 Bupropion HCL 100mg Tablets Take 1 Tablet By Mouth Once Daily In The Morning Unknown Immunizations Description No Information Available Vital Signs Date Vital Result Comment 12/25/2020 2:33pm Height 63 inches 5'3" Weight 148.00 lb BP Systolic 126 mmHg BP Diastolic 79 mmHg Heart Rate 80 /min BMI (Body Mass Index) 26.2 kg/m2 Weight 67.133 kg Body Temperature 94.5 F Results Description No Information Available Procedures Date Code Description Status 12/25/2020 92031 Office/Outpatient New Moderate M DM 45-59 Minutes Completed Medical Devices Description No Information Available Encounters Type Date Location Provider Dx Diagnosis Office Visit 12/25/2020 2:00p Main Office Noel Larose M.D. Z 12.11 Encounter for screening for malignant neoplasm of colon R13.10 Dysphagia, unspecified Assessments Date Code Description Provider 12/25/2020 Z12.11 Screening for malignant neoplasm of colon Noel Larose M.D. 12/25/2020 R13.10 Dysphagia Noel godfrey M.D. Plan of Treatment Future Appointment(s):* 02/04/2021 8:00 am - Jean Paul at Main Office * 02/18/2021 12:30 pm - Noel Larose M.D. at Main Office 12/25/2020 - Noel Larose M.D.* Z12.11 Screening for malignant neoplasm of colon* Comments:* 65 yo wf who presents for a screening colonoscopy/egd for dysphagia. Last scope was 15 years ago. Has occasional dysphagia. No c/o abdominal pain, weight loss, change in bowel habits, or rectal bleeding. No family h/o colon cancer. No h/o chest pain, or sob. Plan:1.Schedule patient for a colonoscopy + egd2.Informed consent given to the patient.3.Pt. advised to stop aspirin,plavix, and anticoagulants at least 3 to 7 days prior to the procedure. * R13.10 Dysphagia* Comments:* Schedule Upper Endoscopy. Functional Status Description No Information Available Mental Status Description No Information Available Referrals Description No Information Available
--- OUTSIDE RECORDS SUMMARY | 2021-02-18 11:18 | CCD ---
Author Author [facility] Organization [facility] Address Unknown Phone Unavailable Care Team Providers Care Client Services Manager Name Role Phone Isai Larose MD Unavailable Unavailable Isai Larose MD Unavailable Unavailable Isai Larose MD Unavailable Unavailable Isai Larose MD Unavailable Unavailable Isai Larose MD Unavailable Unavailable Isai Larose MD Unavailable Unavailable Isai Larose MD Unavailable Unavailable Isai Larose MD Unavailable Unavailable Isai Larose MD Unavailable Unavailable Isai Larose MD Unavailable Unavailable Isai Larose MD Unavailable Unavailable Isai Larose MD Unavailable Unavailable Isai Larose MD Unavailable Unavailable Isai Larose MD Unavailable Unavailable Isai Larose MD Unavailable Unavailable Isai Larose MD Unavailable Unavailable Isai Larose MD Unavailable Unavailable Isai Larose MD Unavailable Unavailable Isai Larose MD Unavailable Unavailable Isai Larose MD Unavailable Unavailable Isai Larose MD Unavailable Unavailable Isai Larose MD Unavailable Unavailable Isai Larose MD Unavailable Unavailable Isai Larose MD Unavailable Unavailable Isai Larose MD Unavailable Unavailable Isai Larose MD Unavailable Unavailable Isai Larose MD Unavailable Unavailable Isai Larose MD Unavailable Unavailable Isai Larose MD Unavailable Unavailable Isai Larose MD Unavailable Unavailable Isai Larose MD Unavailable Unavailable Isai Larose MD Unavailable Unavailable Isai Larose MD Unavailable Unavailable Isai Larose MD Unavailable Unavailable Isai Larose MD Unavailable Unavailable Isai Larose MD Unavailable Unavailable Isai Larose MD Unavailable Unavailable Isai Larose MD Unavailable Unavailable Isai Larose MD Unavailable Unavailable Isai Larose MD Unavailable Unavailable Isai Larose MD Unavailable Unavailable Isai Larose MD Unavailable Unavailable Isai Larose MD Unavailable Unavailable Isai Larose MD Unavailable Unavailable Isai Larose MD Unavailable Unavailable Isai Larose MD Unavailable Unavailable Isai Larose MD Unavailable Unavailable Isai Larose MD Unavailable Unavailable Isai Larose MD Unavailable Unavailable Isai Larose MD Unavailable Unavailable Isai Larose MD Unavailable Unavailable Neto, Lina BREAKFAST ATTENDANT Unavailable Unavailable Neto, Lina BREAKFAST ATTENDANT Unavailable Unavailable Neto, Lina BREAKFAST ATTENDANT Unavailable Unavailable Neto, Lina BREAKFAST ATTENDANT Unavailable Unavailable Neto, Lina BREAKFAST ATTENDANT Unavailable Unavailable Neto, Lina BREAKFAST ATTENDANT Unavailable Unavailable Neto, Lina BREAKFAST ATTENDANT Unavailable Unavailable Neto, Lina BREAKFAST ATTENDANT Unavailable Unavailable Neto, Lina BREAKFAST ATTENDANT Unavailable Unavailable Neto, Lnia BREAKFAST ATTENDANT Unavailable Unavailable Neto, Lina BREAKFAST ATTENDANT Unavailable Unavailable Neto, Lina BREAKFAST ATTENDANT Unavailable Unavailable Neto, Lina BREAKFAST ATTENDANT Unavailable Unavailable Neto, Lina BREAKFAST ATTENDANT Unavailable Unavailable Neto, Lina BREAKFAST ATTENDANT Unavailable Unavailable Neto, Lina BREAKFAST ATTENDANT Unavailable Unavailable Neto, Lina BREAKFAST ATTENDANT Unavailable Unavailable Neto, Lina BREAKFAST ATTENDANT Unavailable Unavailable Neto, Lina BREAKFAST ATTENDANT Unavailable Unavailable Neto, Lina BREAKFAST ATTENDANT Unavailable Unavailable Neto, Lina BREAKFAST ATTENDANT Unavailable Unavailable Neto, Lina BREAKFAST ATTENDANT Unavailable Unavailable Neto, Lina BREAKFAST ATTENDANT Unavailable Unavailable Neto, Lina BREAKFAST ATTENDANT Unavailable Unavailable Neto, Lina BREAKFAST ATTENDANT Unavailable Unavailable Neto, Lina BREAKFAST ATTENDANT Unavailable Unavailable Neto, Lina BREAKFAST ATTENDANT Unavailable Unavailable Neto, Lina BREAKFAST ATTENDANT Unavailable Unavailable Neto, Lina BREAKFAST ATTENDANT Unavailable Unavailable Neto, Lina BREAKFAST ATTENDANT Unavailable Unavailable Neto, Lina BREAKFAST ATTENDANT Unavailable Unavailable Neto, Lina BREAKFAST ATTENDANT Unavailable Unavailable Neto, Lina BREAKFAST ATTENDANT Unavailable Unavailable Neto, Lina BREAKFAST ATTENDANT Unavailable Unavailable Neto, Lina BREAKFAST ATTENDANT Unavailable Unavailable RojelioSachi phillip MD Unavailable Unavailable RojelioSachi hicks MD Unavailable Unavailable RojelioSachi phillip MD Unavailable Unavailable RojelioSachi MD Unavailable Unavailable RojelioSachi MD Unavailable Unavailable RojelioSachi MD Unavailable Unavailable RojelioSachi MD Unavailable Unavailable Sachi Serrato MD Unavailable Unavailable RojelioSachi hicks MD Unavailable Unavailable RojelioSachi hicks MD Unavailable Unavailable RojelioSachi MD Unavailable Unavailable RojelioSachi MD Unavailable Unavailable RojelioSachi MD Unavailable Unavailable RojelioSachi MD Unavailable Unavailable RojelioSachi hicks MD Unavailable Unavailable RojelioSachi MD Unavailable Unavailable RojelioSachi MD Unavailable Unavailable RojelioSachi hicks MD Unavailable Unavailable RojelioSachi phillip MD Unavailable Unavailable Sachi Serrato MD Unavailable Unavailable Sachi Serrato MD Unavailable Unavailable Sachi Serrato MD Unavailable Unavailable Sachi Serrato MD Unavailable Unavailable Sachi Serrato MD Unavailable Unavailable Sachi Serrato MD Unavailable Unavailable Sachi Serrato MD Unavailable Unavailable Sachi Serrato MD Unavailable Unavailable Sachi Serrato MD Unavailable Unavailable Sachi Serrato MD Unavailable Unavailable Sachi Serrato MD Unavailable Unavailable Sachi Serrato MD Unavailable Unavailable Sachi Serrato MD Unavailable Unavailable Sachi Serrato MD Unavailable Unavailable Sachi Serrato MD Unavailable Unavailable Sachi Serrato MD Unavailable Unavailable Sachi Serrato MD Unavailable Unavailable Sachi Serrato MD Unavailable Unavailable Sachi Serrato MD Unavailable Unavailable Sachi Serrato MD Unavailable Unavailable Sachi Serrato MD Unavailable Unavailable Sachi Serrato MD Unavailable Unavailable Sachi Serrato MD Unavailable Unavailable Sachi Serrato MD Unavailable Unavailable Sachi Serrato MD Unavailable Unavailable Sachi Serrato MD Unavailable Unavailable Sachi Serrato MD Unavailable Unavailable Sachi Serrato MD Unavailable Unavailable Sachi Serrato MD Unavailable Unavailable RojelioSachi hicks MD Unavailable Unavailable Sachi Serrato MD Unavailable Unavailable RojelioSachi MD Unavailable Unavailable Rojelio, Sachi Causey MD Unavailable Unavailable Rojelio, M Marium SLAUGHTER Unavailable Unavailable Rojelio, Sachi Causey MD Unavailable Unavailable Rojelio, M Marium SLAUGHTER Unavailable Unavailable Rojelio, Sachi Causey MD Unavailable Unavailable Rojelio, M Marium SLAUGHTER Unavailable Unavailable Rojelio, M Marium SLAUGHTER Unavailable Unavailable Rojelio, M Marium SLAUGHTER Unavailable Unavailable Rojelio, M Marium SLAUGHTER Unavailable Unavailable Rojelio, M Marium SLAUGHTER Unavailable Unavailable Rojelio, M Marium SLAUGHTER Unavailable Unavailable Rojelio, M Marium SLAUGHTER Unavailable Unavailable Rojelio, M Marium SLAUGHTER Unavailable Unavailable Rojelio, M Marium SLAUGHTER Unavailable Unavailable Rojelio, M Marium SLAUGHTER Unavailable Unavailable Rojelio, M Marium SLAUGHTER Unavailable Unavailable Rojelio, M Marium SLAUGHTER Unavailable Unavailable Rojelio, M Marium SLAUGHTER Unavailable Unavailable Rojelio, M Marium SLAUGHTER Unavailable Unavailable Rojelio, M Marium SLAUGHTER Unavailable Unavailable Rojelio, M Marium SLAUGHTER Unavailable Unavailable Rojelio, M Marium SLAUGHTER Unavailable Unavailable Rojelio, Sachi Causey MD Unavailable Unavailable Rojelio, M Marium SLAUGHTER Unavailable Unavailable Rojelio, M Marium SLAUGHTER Unavailable Unavailable Rojelio, M Marium SLAUGHTER Unavailable Unavailable Rojelio, M Marium SLAUGHTER Unavailable Unavailable Rojelio, M Marium SLAUGHTER Unavailable Unavailable Rojelio, M Marium SLAUGHTER Unavailable Unavailable Rojelio, M Marium SLAUGHTER Unavailable Unavailable Rojelio, M Marium SLAUGHTER Unavailable Unavailable Rojelio, M Marium SLAUGHTER Unavailable Unavailable Rojelio, M Marium SLAUGHTER Unavailable Unavailable Re-disclosure Warning The records that you are about to access may contain information from federally-assisted alcohol or drug abuse programs. If such information is present, then the following federally mandated warning applies: This information has been disclosed to you from records protected by federal confidentiality rules (42 CFR part 2). The federal rules prohibit you from making any further disclosure of this information unless further disclosure is expressly permitted by the written consent of the person to whom it pertains or as otherwise permitted by 42 CFR part 2. A general authorization for the release of medical or other information is NOT sufficient for this purpose. The Federal rules restrict any use of the information to criminally investigate or prosecute any alcohol or drug abuse patient.The records that you are about to access may contain highly sensitive health information, the redisclosure of which is protected by Article 27-F of the [facility] Public Health law. If you continue you may have access to information: Regarding HIV / AIDS; Provided by facilities licensed or operated by the [facility] Office of Mental Health; or Provided by the [facility] Office for People With Developmental Disabilities. If such information is present, then the following [facility] mandated warning applies: This information has been disclosed to you from confidential records which are protected by state law. State law prohibits you from making any further disclosure of this information without the specific written consent of the person to whom it pertains, or as otherwise permitted by law. Any unauthorized further disclosure in violation of state law may result in a fine or shelter sentence or both. A general authorization for the release of medical or other information is NOT sufficient authorization for further disc losure. Family History Family Member Name Family Member Gender Family Member Status Date o f Status Description Data Source(s) Unknown Unknown Problem [facility] ([facility]) Unknown Female Problem [facility] ([facility] Unknown Female Problem [facility] ([facility]) Encounters Encounter Providers Location Date Indications Data Source(s ) Outpatient Attender: Noel Larose MD Main Office 12/25/2020 02:00:00 PM EDT [facility] ([facility]) Outpatient Attender: Marium Levy 02:00:00 PM EDT [facility] ([facility] ) Outpatient Attender: Marium Levy 02:30:00 PM EDT [facility] ([facility] ) [place] [address] [facility] [facility] [place] [address] 10/01/2020 12:00:00 AM EDT eCW1 ([facility]) [place]patient [address] [facility] [place] [address] 08/29/2020 12:00:00 AM EDT eCW1 ([facility]) Outpatient Attender: Marium Levy 08:30:00 AM EDT [facility] ([facility] ) (DRMPDT) PDT [address] [facility] [place] [address] 07/25/2020 12:00:00 AM EDT eCW1 ([facility]) Outpatient [address] [facility] [place] [address] 07/17/2020 12:00:00 AM EDT eCW1 ([facility]) Outpatient Attender: Lina Levy 02:40:00 PM EDT [facility] ([facility] ) Outpatient Attender: Marium Levy 12:00:00 PM EST [facility] ([facility] ) Immunizations Vaccine Date Status Description Data Source(s) COVID-19 VACCINE [facility] 06/18/2020 12:00:00 AM EDT completed [facility] Vaccine Series Complete: YESThis Data wa s Submitted to [facility]. Medications Medication Brand Name Start Date Product Form Dose Route Admi nistrative Instructions Pharmacy Instructions Status Indications Reaction Description Data Source(s) 1.479-0.188- 0.225 gram 02/16/2021 12:00:00 AM EST tablet 24 TAKE DIRECTED TAKE DIRECTED SOLD: 02/16/2021 [facility] 100 mg 01/24/2021 12:00:00 AM EDT tablet 90 TAKE ONE TABLET BY MOUTH EVERY MORNING TAKE ONE TABLET BY MOUTH EVERY MORNING SOLD: 01/24/2021 [facility] Sutab Sutab 12/25/2020 12:00:00 AM EDT active [facility] ([facility]) Sodium Chloride 0.111 MEQ/ML Nasal Solution Saline Nasal Spr ay 12/15/2020 12:00:00 AM EDT active M EDENT ([facility]) cetirizine hydrochloride 10 MG Oral Tablet [Zyrtec] Zyrtec A llergy 12/15/2020 12:00:00 AM EDT ORAL active M [facility] ([facility]) Trazodone Hydrochloride 100 MG Oral Tablet TRAZODONE HCL 10/23/2020 12:00:00 AM EDT tablet 45 TAKE ONE-HALF TABLET BY MOUT H AT BEDTIME TAKE ONE-HALF TABLET BY MOUTH AT BEDTIME SOLD: 10/28/2020 [facility] Trazodone Hydrochloride 100 MG Oral Tablet Trazodone HCL 10/22/2020 12:00:00 AM EDT ORAL active [facility] ([facility]) 24 HR venlafaxine 37.5 MG Extended Release Oral Capsule Venl afaxine HCL ER 08/18/2020 12:00:00 AM EDT ORAL active [facility] ([facility]) Trazodone Hydrochloride 50 MG Oral Tablet Trazodone HCL 08/18/2020 12:00:00 AM EDT ORAL completed [facility] ([facility]) Riboflavin 100 MG Oral Tablet B2 08/18/2020 12:00:00 AM EDT active [facility] Trazodone Hydrochloride 100 MG Oral Tablet TRAZODONE HCL 08/05/2020 12:00:00 AM EDT tablet 45 TAKE ONE-HALF TABLET BY MOUT H AT BEDTIME TAKE ONE-HALF TABLET BY MOUTH AT BEDTIME SOLD: 08/05/2020 [facility] valacyclovir 500 MG Oral Tablet Valacyclovir HCl 500 MG Vala cyclovir HCl 500 MG 07/25/2020 12:00:00 AM EDT 1.0 {tablet} active Valacyclovir HCl 500 MG eCW1 ([facility]) 500 mg 07/25/2020 12:00:00 AM EDT tablet 20 TAKE ONE TABLET BY MOUTH TWICE A DAY FOR 10 DAYS TAKE ONE TABLET BY MOUTH TWICE A DAY FOR 10 DAYS SOLD: 08/05/2020 [facility] 100 mg 2020 12:00:00 AM EDT tablet 90 TAKE 1 TABLET BY MOUTH ONCE DAILY IN THE MORNING TAKE 1 TABLET BY MOUTH ONCE DAILY IN THE MORNING SOLD: 2020 [facility] 100 mg 2020 12:00:00 AM EDT tablet 90 TAKE 1 TABLET BY MOUTH ONCE DAILY IN THE MORNING TAKE 1 TABLET BY MOUTH ONCE DAILY IN THE MORNING SOLD: 10/28/2020 [facility] valacyclovir 500 MG Oral Tablet Valacyclovir HCl 500 MG Vala cyclovir HCl 500 MG 07/17/2020 12:00:00 AM EDT 2.0 {tablet} suspende d Valacyclovir HCl 500 MG eCW1 ([facility]) valacyclovir 500 MG Oral Tablet Valacyclovir HCl 500 MG Vala cyclovir HCl 500 MG 07/17/2020 12:00:00 AM EDT 2.0 {tablet} active Valacyclovir HCl 500 MG eCW1 ([facility]) 5 % 07/03/2020 12:00:00 AM EDT cream 40 APPLY TO FACE TWICE A DAY FOR 2 WEEKS APPLY TO FACE TWICE A DAY FOR 2 WEEKS SOLD: 07/14/2020 [facility] Covid-19 vaccine, Unspecified 06/18/2020 12:00:00 AM EDT completed [facility]) Medication administered onsite Acetaminophen 500 MG Oral Tablet Acetaminophen Extra Strengt h 06/16/2020 12:00:00 AM EDT ORAL active M [facility]ENT ([facility]) Vitamin B 12 1 MG Extended Release Oral Tablet Vitamin B12 06/16/2020 12:00:00 AM EDT ORAL active [facility] ([facility]) Folic Acid 1 MG Oral Tablet Folic Acid 06/16/2020 12:00:00 AM EDT ORAL active [facility] ([facility]) Thiamine 100 MG Oral Tablet Thiamine HCL 06/16/2020 12:00:00 AM EDT ORAL completed [facility] ([facility]) Multi Vitamin 06/16/2020 12:00:00 AM EDT ORAL acti ve MED[facility] ([facility]) 100 mg 06/12/2020 12:00:00 AM EST tablet 30 TAKE ONE TABLET BY MOUTH EVERY MORNING AT 8AM. TAKE ONE TABLET BY MOUTH EVERY MORNING AT 8AM. SOLD: 021 [facility] Trazodone Hydrochloride 100 MG Oral Tablet TRAZODONE HCL 06/12/2020 12:00:00 AM EST tablet 30 TAKE ONE TABLET BY MOUTH AT BEDTIME (9:30-11PM) NEEDED , MAY REPEAT IN 1 HOUR TAKE ONE TABLET BY MOUTH AT BEDTIME (9:3 0-11PM) NEEDED , MAY REPEAT IN 1 HOUR SOLD: 06/16/2020 [facility] 100 mg 01/21/2020 12:00:00 AM EDT tablet 30 TAKE 1/2-1 TABLET BY MOUTH ONCE DAILY IN THE MORNING TAKE 1/2-1 TABLET BY MOUTH ONCE DAILY IN THE MORNING S OLD: 01/21/2020 [facility] 100 mg 01/21/2020 12:00:00 AM EDT tablet 30 TAKE 1/2-1 TABLET BY MOUTH ONCE DAILY IN THE MORNING TAKE 1/2-1 TABLET BY MOUTH ONCE DAILY IN THE MORNING S OLD: 03/25/2020 [facility] 100 mg 01/21/2020 12:00:00 AM EDT tablet 30 TAKE 1/2-1 TABLET BY MOUTH ONCE DAILY IN THE MORNING TAKE 1/2-1 TABLET BY MOUTH ONCE DAILY IN THE MORNING S OLD: 02/19/2020 [facility] 50 mg 11/19/2019 12:00:00 AM EDT tablet 60 TAKE ONE AND ONE-HALF TO 2 TABLETS BY MOUTH EVERY DAY TAKE ONE AND ONE-HALF TO 2 TABLETS BY MO UTH EVERY DAY SOLD: 02/19/2020 [facility] 50 mg 11/19/2019 12:00:00 AM EDT tablet 60 TAKE ONE AND ONE-HALF TO 2 TABLETS BY MOUTH EVERY DAY TAKE ONE AND ONE-HALF TO 2 TABLETS BY MO UTH EVERY DAY SOLD: 12/23/2019 [facility] 50 mg 11/19/2019 12:00:00 AM EDT tablet 60 TAKE ONE AND ONE-HALF TO 2 TABLETS BY MOUTH EVERY DAY TAKE ONE AND ONE-HALF TO 2 TABLETS BY MO UTH EVERY DAY SOLD: 03/25/2020 [facility] 50 mg 11/19/2019 12:00:00 AM EDT tablet 60 TAKE ONE AND ONE-HALF TO 2 TABLETS BY MOUTH EVERY DAY TAKE ONE AND ONE-HALF TO 2 TABLETS BY MO UTH EVERY DAY SOLD: 01/21/2020 [facility] 100 mg 10/16/2019 12:00:00 AM EDT tablet 30 TAKE 1/2-1 TABLET BY MOUTH ONCE DAILY IN THE MORNING TAKE 1/2-1 TABLET BY MOUTH ONCE DAILY IN THE MORNING S OLD: 12/23/2019 [facility] Insurance Providers Payer name Policy type / Coverage type Policy ID Covered republican ID Covered republican's relationship to de oliveira Policy [place] Plan Information [facility] Part B [id number] Family Dependent [id number] [facility] Medigap Part B [id number] Family Dependent [id number] [facility] BC/BS Medigap Part B [id number] Family Dependent [id number] [facility] BC/BS Medigap Part B [id number] Family Dependent 304/[address] [facility] BC/BS Medigap Part B [id number] Family Dependent [id number] [facility] BC/BS Medigap Part B [id number] Family Dependent [id number] [facility] BC/BS Medigap Part B [id number] Family Dependent [id number] [place] B [id number] Self [id number] [place] [id number] Self [id number] [place] Part [place] [id number] Self [id number] [place] Med[place] Part B [id number] Self [id number] [place] [id number] Self [id number] [place] [id number] Self [id number] [place] Part B [id number] Self [id number] BS [place] [employer] Commercial [id number] Self [id number] BS [place] Commercial [id number] Self [id number] MEDICARE BLUE PPO 306 [id number] SP [id number] MEDICARE BLUE PPO 306 [id number] SP [id number] [facility] [place] [id number] SP [id number] [place] PPO 306 [id number] SP [id number] [place] 304/804 [id number] SP [id number] [place] BCBS B [id number] S [id number] [employer]BS/[place] Commercial [id number] Self [id number] [place] 304/804 [id number] SP [id number] [place] Commercial [id number] Self MEDICARE BLUE PPO 306 [id number] SP [id number] Problems, Conditions, and Diagnoses Code Display Name Description Problem Type Effective Dates Data Source(s) [id number] Screening for malignant neoplasm of colo n Screening for malignant neoplasm of colon Problem 12/25/2020 12:00:00 AM EDT [facility] ([facility]) Surgeries/Procedures Procedure Description Date Indications Data Source(s) OFFICE OUTPATIENT NEW 45 MINUTES 12/25/2020 12:00:00 A M EDT [facility] ([facility]) ECG ROUTINE ECG W/LEAST 12 LDS W/I&R 12/15/2020 12:00: 00 AM EDT [facility] Brief Emotional/Behav Assessment W/ Scoring Doc Per Standard Inst 12/15/2020 12:00:00 AM EDT [facility] ([facility] ) PERIODIC PREVENTIVE MED EST PATIENT 65YRS&> 12/15/2020 12:00:00 AM EDT [facility] ([facility]) OFFICE OUTPATIENT VISIT 15 MINUTES 11/06/2020 12:00:00 AM EDT [facility] ([facility]) Medication: Levulan Kerastick topical (Aminolevulinic Acid) 08/29/2020 12:00:00 AM EDT eCW1 ([facility]) Brief Emotional/Behav Assessment W/ Scoring Doc Per Standard Inst 08/18/2020 12:00:00 AM EDT [facility] OFFICE OUTPATIENT VISIT 25 MINUTES 08/18/2020 12:00:00 AM EDT [facility] ([facility]) Medication: Levulan Kerastick topical (Aminolevulinic Acid) 07/25/2020 12:00:00 AM EDT eCW1 ([facility]) Melgar Cre SRV W/I 7 Days Of DC, Comm W/I 2 Dys Med Rec 06/20/2020 12:00:00 AM EDT [facility] ([facility] Results ID Date Data Source [id number] 02/13/2021 10:10:00 AM EST [facility] ([facility]) Name Value Range Interpretation Code Description Data Shivani rce(s) Supporting Document(s) Coronavirus 2019 Nasopharygeal Laboratory test result [facility]) ASSAY INFORMATION: Real Time RT-PCR NOTE: The COVID-19 assay has been cleared by the U.S. Food and Drug Administration under the Emergency Use Authorization (EUA). [employer] and [facility] are designated as high complexity laboratories by the Clinical Laboratory Improvement Amendments of 1988(CLIA) and are qualified to perform this test. Not Detected ID Date Data Source [id number] 12/12/2020 08:23:00 AM EDT [facility] ([facility]) Name Value Range Interpretation Code Description Data Shivani rce(s) Supporting Document(s) Triglyceride [Mass/volume] in Serum or Plasma 92 mg/dL 30-150 [facility] ([facility]) Cholesterol [Mass/volume] in Serum or Plasma 240 mg/dL 131-200 [facility] ([facility]) Cholesterol in HDL [Mass/volume] in Serum or Plasma 57 mg/dL 35-60 [facility]) Cholesterol in LDL [Mass/volume] in Serum or Plasma by calcu lation 165 CALC 50-159 [facility] ID Date Data Source [id number] 12/12/2020 08:23:00 AM EDT [facility] ([facility]) Name Value Range Interpretation Code Description Data Shivani rce(s) Supporting Document(s) Glucose [Mass/volume] in Serum or Plasma 90 mg/dL 74-99 [facility] ([facility]) 100-125 mg/dL PRE-DIABETES/FASTING >126 mg/dL DIABETES/FASTING ID Date Data Source [id number] 08/18/2020 09:08:00 AM EDT [facility] ([facility]) Name Value Range Interpretation Code Description Data Shivani rce(s) Supporting Document(s) C reactive protein [Mass/volume] in Serum or Plasma by High sensitivity method Laboratory test result 0.00-0.30 [facility] ([facility]) ID Date Data Source [id number] 08/18/2020 [facility]:07[facility] Name Value Range Interpretation Code Description Data Shivani rce(s) Supporting Document(s) Thyrotropin [Units/volume] in Serum or Plasma by Detec tion limit <= 0.05 mIU/L 2.05 uIU/mL 0.36-3.74 [facility] ID Date Data Source [id number] 08/18/2020 09:07:[facility] [facility] Name Value Range Interpretation Code Description Data Shivani rce(s) Supporting Document(s) Glucose [Mass/volume] in Serum or Plasma 89 mg/dL 74-99 [facility] ([facility]) 100-125 mg/dL PRE-DIABETES/FASTING >126 mg/dL DIABETES/FASTING Urea nitrogen [Mass/volume] in Serum or Plasma 14 mg/dL 7-18 [facility] ([facility]) Sodium [Moles/volume] in Serum or Plasma 140 meq/L 136-145 [facility] ([facility]) Creatinine 0.8 mg/dL 0.6-1.3 [facility] ([facility]) Potassium [Moles/volume] in Serum or Plasma 4.6 meq/L 3.5-5.1 [facility] ([facility]) Chloride [Moles/volume] in Serum or Plasma 105 meq/L 98-107 [facility] ([facility]) Carbon dioxide, total [Moles/volume] in Serum or Plasma 28 meq/L 21 -32 [facility] ([facility]) Calcium [Mass/volume] in Serum or Plasma 9.2 mg/dL 8.5-10.1 [facility] ([facility]) Alkaline phosphatase isoenzyme [Units/volume] in Serum or Pl asma 87 mg/dL 46-116 [facility] ([facility]) Total Bilirubin 0.4 mg/dL 0.2-1.0 [facility] ([facility]) Aspartate aminotransferase [Enzymatic activity/volume] in Serum or Plasma 19 U/L 15-37 [facility] ([facility] ) Albumin [Mass/volume] in Serum or Plasma 4.3 g/dL 3.4-5.0 [facility] ([facility]) Alanine aminotransferase [Enzymatic activity/volume] in Seru m or Plasma 29 U/L 12-78 [facility] ([facility]) A/G Ratio 1.54 CALC 1.00-1.90 [facility] ([facility]) Proteinase 3 Ab [Units/volume] in Serum 7.1 g/dL 6.4-8.2 [facility] ([facility]) Glomerular filtration rate/1.73 sq M pre dicted among blacks [Volume Rate/Area] in Serum or Plasma by Creatinine-based formula (MDRD) Laboratory test result [facility]) <content>CHRONIC KIDNEY DISEASE STAGING PER NKF</content>
<content></content>
<content>STAGE I & II GFR >= 60 NORMAL TO MILDLY DECREASED</content>
<content>STAGE III GFR 30-59 MODERATELY DECREASED</content>
<content>STAGE IV GFR 15-29 SEVERELY DECREASED</content>
<content>STAGE V GFR <15 VERY LITTLE GFR LEFT</content>
<content>ESRD GFR <15 ON GLOBAL SECURITY ARCHITECT</content>
<content></content> Glomerular filtration rate/1.73 sq M pre dicted among non-blacks [Volume Rate/Area] in Serum or Plasma by Creatinine-based formula (MDRD) Laboratory test result [facility] ([facility] ) ID Date Data Source [id number] 08/18/2020 09:07:00 AM EDT [facility] Name Value Range Interpretation Code Description Data Shivani rce(s) Supporting Document(s) Erythrocyte sedimentation rate by Westergren method 7 mm/hr 0-15 [facility] ([facility]) Magnesium 2.2 mg/dL 1.8-2.4 [facility] ([facility]) ID Date Data Source [id number] 08/18/2020 09:07:00 AM EDT [facility] ([facility]) Name Value Range Interpretation Code Description Data Shivani rce(s) Supporting Document(s) Leukocytes [#/volume] in Blood by Automated count 3.9 x10*3/UL 4.1-10 .9 [facility] Hemoglobin [Mass/volume] in Blood 13.9 g/dL 12.0-18.0 [facility] ([facility]) Erythrocytes [#/volume] in Blood by Automated count 4.70 x10*6/UL 4.2 0-6.30 [facility] ([facility]) MCV 86.7 fL 80.0-97.0 [facility] MCH 29.7 pg 26.0-32.0 [facility] ([facility]) Hematocrit [Volume Fraction] of Blood by Automated count 40.7 % 3 7.0-51.0 [facility]) MCHC 34.2 g/dL 31.0-38.0 [facility] ([facility]) Erythrocyte distribution width [Ratio] by Automated count 12.1 % 11.6-13.7 [facility] ([facility]) Lymph % 35.6 % 10.0-58.5 [facility] ([facility]) Platelets [#/volume] in Blood by Automated count 191 x10*3/UL 140-440 [facility] ([facility]) MPV 8.7 FL 7.8-11.0 [facility]) Mid % 8.3 % 1.7-9.3 [facility] ([facility]) Neut % 56.1 % 37.0-92.0 [facility] ([facility]) Lymph # 1.3 x10*3/UL 0.6-4.1 [facility] ([facility]) Mid # 0.4 x10*3/UL 0.1-0.6 [facility] ([facility]) Neut # 2.2 x10*3/UL 2.0-7.8 [facility] ([facility]) ID Date Data Source [id number] 05/04/2020 12:00:00 AM EST [facility] Name Value Range Interpretation Code Description Data Shivani rce(s) Supporting Document(s) SARS coronavirus 2 Ag Negative [facility] This lab was ordered by [facility] and reported by [facility]. ID Date Data Source [id number] 03/19/2020 07:48:00 AM EST [facility] ([facility]) Name Value Range Interpretation Code Description Data Shivani rce(s) Supporting Document(s) Cholesterol [Mass/volume] in Serum or Plasma 273 mg/dL 131-200 [facility] ([facility]) Cholesterol in HDL [Mass/volume] in Serum or Plasma 76 mg/dL 35-60 [facility] ([facility]) Triglyceride [Mass/volume] in Serum or Plasma 163 mg/dL 30-150 [facility] ([facility]) Cholesterol in LDL [Mass/volume] in Serum or Plasma by calcu lation 164 CALC 50-159 [facility] ([facility]) Procedure Social History No Information Vital Signs ID Date Data Source UNK Name Value Range Interpretation Code Description Data Source(s) Body height 63 [in_i] 63 [in_i] [facility] ([facility] 5'3" Body weight 148.00 [lb_av] 148.00 [lb_av] [facility] T ([facility]) Systolic blood pressure 126 mm[Hg] 126 mm[Hg] M [facility] ([facility]) Diastolic blood pressure 79 mm[Hg] 79 mm[Hg] [facility] ([facility]) Heart rate 80 /min 80 /min [facility] ([facility]) Body mass index (BMI) [Ratio] 26.2 kg/m2 26.2 k g/m2 [facility] ([facility]) Body weight 67.133 kg 67.133 kg [facility] ([facility]) Body temperature 94.5 [degF] 94.5 [degF] [facility] ([facility]) Systolic blood pressure 108 mm[Hg] 108 mm[Hg] M [facility]ENT ([facility]) RT Arm Diastolic blood pressure 60 mm[Hg] 60 mm[Hg] [facility] ([facility]) RT Arm Heart rate 66 /min 66 /min [facility] ([facility]) Body height 59.50 [in_i] 59.50 [in_i] [facility] 4'11.50" Body weight 149.00 [lb_av] 149.00 [lb_av] [facility] T ([facility]) Body mass index (BMI) [Ratio] 29.6 kg/m2 29.6 k g/m2 [facility] ([facility]) Body weight 151.00 [lb_av] 151.00 [lb_av] [facility] T ([facility]) Body mass index (BMI) [Ratio] 30.0 kg/m2 30.0 k g/m2 [facility] ([facility]) Systolic blood pressure 118 mm[Hg] 118 mm[Hg] M EDENT ([facility]) RT Arm Diastolic blood pressure 76 mm[Hg] 76 mm[Hg] [facility] ([facility]) RT Arm Heart rate 76 /min 76 /min [facility] ([facility]) Body height 59.50 [in_i] 59.50 [in_i] [facility] 4'11.50" Body weight 155.2 [lb_av] 155.2 [lb_av] eCW1 ([facility]) Body height 59 [in_i] 59 [in_i] eCW1 ([facility]) Body mass index (BMI) [Ratio] 31.34 kg/m2 31.34 kg/m2 eCW1 ([facility]) Systolic blood pressure 114 mm[Hg] 114 mm[Hg] e CW1 ([facility]) Diastolic blood pressure 78 mm[Hg] 78 mm[Hg] eCW1 ([facility]) Systolic blood pressure 112 mm[Hg] 112 mm[Hg] M EDENT ([facility]) RT Arm Diastolic blood pressure 74 mm[Hg] 74 mm[Hg] [facility] ([facility]) RT Arm Heart rate 64 /min 64 /min [facility] ([facility]) Body height 59.50 [in_i] 59.50 [in_i] [facility] ([facility] 4'11.50" Body weight 159.00 [lb_av] 159.00 [lb_av] [facility] T ([facility]) Body mass index (BMI) [Ratio] 31.6 kg/m2 31.6 k g/m2 [facility] ([facility]) Body weight 163.2 [lb_av] 163.2 [lb_av] eCW1 ([facility]) Body height 59 [in_i] 59 [in_i] eCW1 ([facility]) Body mass index (BMI) [Ratio] 32.96 kg/m2 32.96 kg/m2 W1 ([facility]) Systolic blood pressure 110 mm[Hg] 110 mm[Hg] e CW1 ([facility]) Diastolic blood pressure 80 mm[Hg] 80 mm[Hg] eCW1 ([facility]) Body weight 154.5 [lb_av] 154.5 [lb_av] eCW1 ([facility]) Body height 59 [in_i] 59 [in_i] eCW1 ([facility]) Body mass index (BMI) [Ratio] 31.20 kg/m2 31.20 kg/m2 eCW1 ([facility]) Systolic blood pressure 110 mm[Hg] 110 mm[Hg] e CW1 ([facility]) Diastolic blood pressure 81 mm[Hg] 81 mm[Hg] eCW1 ([facility]) Systolic blood pressure 130 mm[Hg] 130 mm[Hg] M EDENT ([facility]) RT Arm Diastolic blood pressure 68 mm[Hg] 68 mm[Hg] [facility] ([facility]) RT Arm Heart rate 76 /min 76 /min [facility] ([facility]) Body height 59.50 [in_i] 59.50 [in_i] [facility] 4'11.50" Body weight 163.00 [lb_av] 163.00 [lb_av] MED[facility] T ([facility]) Body mass index (BMI) [Ratio] 32.4 kg/m2 32.4 k g/m2 [facility] ([facility]) Diastolic blood pressure 86 mm[Hg] 86 mm[Hg] [facility] ([facility]) RT Arm Heart rate 60 /min 60 /min [facility] ([facility]) Systolic blood pressure 138 mm[Hg] 138 mm[Hg] M EDENT ([facility]) RT Arm Systolic blood pressure 132 mm[Hg] 132 mm[Hg] M EDENT ([facility]) Diastolic blood pressure 82 mm[Hg] 82 mm[Hg] [facility] ([facility]) Body height 59.50 [in_i] 59.50 [in_i] [facility] 4'11.50" Body weight 157.50 [lb_av] 157.50 [lb_av] [facility] T ([facility]) Body mass index (BMI) [Ratio] 31.3 kg/m2 31.3 k g/m2 [facility] ([facility]) Patient Treatment Plan of Care Planned Activity Planned Date Details Description Data Source (s) valacyclovir 500 MG Oral Tablet 07/25/2020 12:00:00 AM EDT [facility] ([facility]) valacyclovir 500 MG Oral Tablet 07/17/2020 12:00:00 AM EDT eCW1 ([facility])
[2021-02-18] MEDS ORDERED: fentaNYL 100 MCG/2 ML INJECTION (J3010) As Ordered ONE (12:42)
--- NOTE | 2021-02-18 12:51 | ROOR ---
Patient Name: Wendy Figueroa Procedure Date: 02/18/2021 12:29 PM Date of : 1955 Age: 65 Room: [facility] Gender: Female Note Status: Finalized Procedure: Upper Endoscopy + Biopsies + Balloon Dilatation Indications: Dysphagia, Heartburn, Exclusion of Ernandez's esophagus Providers: Noel Larose MD Referring MD: Marium KENYON MD Requesting Provider: Medicines: Monitored Anesthesia Care Complications: No immediate complications. Procedure: Pre-Anesthesia Assessment: - The heart rate, respiratory rate, oxygen saturations, blood pressure, adequacy of pulmonary ventilation, and response to care were monitored throughout the procedure. The Endoscope was introduced through the mouth, and advanced to the second part of duodenum. The upper GI endoscopy was accomplished without difficulty. The patient tolerated the procedure well. Findings: Mucosal changes including ringed esophagus, feline appearance and longitudinal furrows were found in the lower third of the esophagus. Biopsies were taken with a cold forceps for histology. A medium-sized hiatal hernia was present. The Z-line was regular and was found 35 cm from the incisors. Multiple biopsies were obtained with cold forceps for evaluation to rule out Ernandez's Esophagus randomly at the gastroesophageal junction. A TTS dilator was passed through the scope. Dilation with an 18-19-20 mm balloon dilator was performed to 20 mm in the entire esophagus. No other significant abnormalities were identified in a careful examination of the stomach. The exam of the duodenum was otherwise normal. Impression: - Esophageal mucosal changes suggestive of eosinophilic esophagitis. Biopsied. - Medium-sized hiatal hernia. - Z-line regular, 35 cm from the incisors. - Multiple biopsies were obtained at the gastroesophageal junction. - Dilation performed in the entire esophagus. - The examination was otherwise normal. Recommendation: - Patient has a contact number available for emergencies. The signs and symptoms of potential delayed complications were discussed with the patient. Return to normal activities tomorrow. Written discharge instructions were provided to the patient. - Resume previous diet. - Discharge patient to home. - Follow an antireflux regimen. - Continue present medications. - Await pathology results. - Telephone GI clinic for pathology results in 1 week. - Return to referring physician. - The findings and recommendations were discussed with the patient. - Use Prilosec (omeprazole) 40 mg PO daily. Procedure Code(s): --- Professional --- 17854, Esophagogastroduodenoscopy, flexible, transoral; with transendoscopic balloon dilation of esophagus (less than 30 mm diameter) Diagnosis Code(s): --- Professional --- K22.8, Other specified diseases of esophagus K44.9, Diaphragmatic hernia without obstruction or gangrene R13.10, Dysphagia, unspecified R12, Heartburn CPT copyright 2019 [employer]. All rights reserved. The codes documented in this report are preliminary and upon cafe team member review may be revised to meet current compliance requirements. Noel Larose MD Noel Larose MD 02/18/2021 12:51:30 PM Electronically signed by Noel Larose MD Number of Addenda: 0 Note Initiated On: 02/18/2021 12:29 PM Estimated Blood Loss: Estimated blood loss: none.
--- NOTE | 2021-02-18 13:06 | ROOR ---
Patient Name: Wendy Figueroa Procedure Date: 02/18/2021 12:29 PM Date of : 1955 Age: 65 Room: [facility] Gender: Female Note Status: Finalized Procedure: Total Colonoscopy to Cecum Indications: Screening for colorectal malignant neoplasm Providers: Noel Larose MD Referring MD: Marium KENYON MD Requesting Provider: Medicines: Monitored Anesthesia Care Complications: No immediate complications. Procedure: Pre-Anesthesia Assessment: - The heart rate, respiratory rate, oxygen saturations, blood pressure, adequacy of pulmonary ventilation, and response to care were monitored throughout the procedure. The Colonoscope was introduced through the anus and advanced to the cecum, identified by appendiceal orifice and ileocecal valve. The colonoscopy was performed without difficulty. The patient tolerated the procedure well. The quality of the bowel preparation was excellent. Findings: The perianal and digital rectal examinations were normal. Non-bleeding internal hemorrhoids were found during retroflexion. The hemorrhoids were small and Grade I (internal hemorrhoids that do not prolapse). Multiple small and large-mouthed diverticula were found in the recto-sigmoid colon, sigmoid colon and descending colon. The exam was otherwise without abnormality on direct and retroflexion views. Impression: - Non-bleeding internal hemorrhoids. - Diverticulosis in the recto-sigmoid colon, in the sigmoid colon and in the descending colon. - The examination was otherwise normal on direct and retroflexion views. - No specimens collected. - The exam was otherwise normal to the cecum. Recommendation: - Patient has a contact number available for emergencies. The signs and symptoms of potential delayed complications were discussed with the patient. Return to normal activities tomorrow. Written discharge instructions were provided to the patient. - High fiber diet. - Discharge patient to home. - Continue present medications. - Repeat colonoscopy in 10 years for screening purposes. - Return to referring physician. - The findings and recommendations were discussed with the patient. Procedure Code(s): --- Professional --- 94474, Colonoscopy, flexible; diagnostic, including collection of specimen(s) by brushing or washing, when performed (separate procedure) Diagnosis Code(s): --- Professional --- Z12.11, Encounter for screening for malignant neoplasm of colon K64.0, First degree hemorrhoids K57.30, Diverticulosis of large intestine without perforation or abscess without bleeding CPT copyright 2019 [employer]. All rights reserved. The codes documented in this report are preliminary and upon instrumentation and control technician review may be revised to meet current compliance requirements. Noel Larose MD Noel Larose MD 02/18/2021 1:06:03 PM Electronically signed by Noel Larose MD Number of Addenda: 0 Note Initiated On: 02/18/2021 12:29 PM Estimated Blood Loss: Estimated blood loss: none.
[2021-02-18 13:36] VITALS: BP 120/79
== END 2021-02-18 13:42 | disposition home or self-care (01) ==
LOC: M OPP 11:08
PROVIDERS: ATTEND Internal Medicine Gastroenterology
DX: Z12.11 Encounter for screening for malignant neoplasm of colon (principal); K57.30 Diverticulosis of large intestine without perforation or abscess without bleeding; K64.0 First degree hemorrhoids; K22.89 Other specified disease of esophagus; K44.9 Diaphragmatic hernia without obstruction or gangrene; R13.10 Dysphagia, unspecified; R12 Heartburn; Z79.899 Other long term (current) drug therapy; Z87.891 Personal history of nicotine dependence
CPT/HCPCS: 43239; 43249; 88305; G0121; J3010

== ENCOUNTER → 2021-04-22 | Outpatient (CLI) | payer MEDICARE ==
[~2021-04-22] MED LIST changes: -NS 1,000 ML IV ONE
== END ==
LOC: M PLAIMG 15:03
PROVIDERS: ATTEND Internal Medicine
DX: Z01.818 Encounter for other preprocedural examination (principal)

== ENCOUNTER → 2021-04-22 | Outpatient (REF) | payer MEDICARE ==
[2021-04-22 13:29] LABS: INR 0.95; PROTHROMBIN TIME 13.1 SECONDS (12.7-14.5)
[2021-04-22 13:30] LABS: PARTIAL THROMBOPLASTIN TIME 29.5 SECONDS (25.9-37.0)
[2021-04-22 13:41] LABS: APPEARANCE, URINE CLEAR (CLEAR); BACTERIA, URINE AUTO 1+ (NEGATIVE); BILIRUBIN, URINE AUTO NEGATIVE (NEGATIVE); BLOOD, URINE BLOOD NEGATIVE (NEGATIVE); COLOR, URINE STRAW (YELLOW); GLUCOSE, URINE (UA) AUTO NEGATIVE (NEGATIVE); KETONE, URINE AUTO NEGATIVE (NEGATIVE); LEUKOCYTE ESTERASE, URINE AUTO 1+ (NEGATIVE); NITRITE, URINE AUTO NEGATIVE (NEGATIVE); PROTEIN, URINE AUTO NEGATIVE (NEGATIVE); RBC, URINE AUTO 1 /HPF (0-3); SPECIFIC GRAVITY URINE AUTO 1.006 (1.002-1.035); SQUAMOUS EPITHELIAL CELL UR AU 0 /HPF (0-6); UROBILINOGEN, URINE AUTO 0.2 mg/dL (0.0-2.0); WBC, URINE AUTO 4 /HPF (0-3)
== END ==
LOC: M LAB REF 12:54
PROVIDERS: ATTEND Internal Medicine
DX: Z01.818 Encounter for other preprocedural examination (principal)

== ENCOUNTER 2021-05-02 12:03 | Emergency (ER) | payer MEDICARE ==
[~2021-05-02] VITALS: Ht 152.4 cm; Wt 68.7 kg
[2021-05-02 14:15] VITALS: BP 145/85
== END 2021-05-02 14:33 | disposition home or self-care (01) ==
LOC: M ED 12:03
DX: I49.3 Ventricular premature depolarization (principal); R00.2 Palpitations; R94.31 Abnormal electrocardiogram [ECG] [EKG]; Z88.6 Allergy status to analgesic agent; Z87.891 Personal history of nicotine dependence

== ENCOUNTER → 2023-12-27 | Outpatient (REF) | payer MEDICARE | LOC: M SFHCDERM 17:49 | PROVIDERS: ATTEND Nurse Practitioner Family | DX: D49.2 Neoplasm of unspecified behavior of bone, soft tissue, and skin (principal) ==